=== PATIENT | female | born 1980 | race Caucasian/White ===

== ENCOUNTER 2025-07-06 17:18 | Emergency (ER) | payer BC, SELFPAY ==
--- OUTSIDE RECORDS SUMMARY | 2025-07-06 17:22 | XMS_ITS | Clinical Summary ---
[facility] Organization [facility] Address [address] [place] [address] Care Team Providers Care Shoe Lining Fitter Name Role Phone Ángel Villalta MD Primary Care Provider [phone] Allergies Active Allergy Reactions Criticality Noted Date Comments Sulfa (Sulfonamide Antibiotics) Medications azithromycin (ZITHROMAX) 250 mg tabletIndicatio ns:Bronchitis Take two tabs first day, then one tab daily x 4 days 6 tablet 4 Active Additional Information Patient not taking.Reported on 04/18/2025 albuterol HFA (PROVENTIL HFA,VENTOLIN HFA,PROAIR HFA) 90 mcg/actuation inhalerIndicati ons:Bronchitis Inhale 2 puffs every 4 (four) hours as needed for wheezing or shortness of breath 1 each 4 Active Additional Information Patient not taking.Reported on 04/18/2025 PNV,calcium 72-iron,carb-fo lic ( PLUS WITH IRON) 29 mg iron- 1 mg tablet /Folic Acid Oral Tablet QTY: 0 tablet Days: 0 Refills: 0 Written: 09/27/18 Patient Instructions: 8 Active losartan (COZAAR) 25 mg tablet Take 1 tablet (25 mg total) by mouth daily 90 tablet 1 5 10/15/20 25 Active Active Problems Problem Noted Date Diagnosed Date Annual physical exam 12/26/2023 Assessment & Plan (04/18/2025 11:10 AM CDT): Discussed lifestyle modifications, diet and exercise. Routine blood work ordered/reviewed today. Yearly vision and dental examinations. Assessment & Plan (12/26/2023 1:50 PM THERAPEUTIC RECREATION ASSISTANT): Discussed lifestyle modifications, diet and exercise. Routine blood work ordered/reviewed today. Yearly vision and dental examinations. Essential hypertension 12/26/2023 Assessment & Plan (04/18/2025 11:11 AM CDT): BP Readings from Last 3 Encounters: 04/18/25 146/82 10/05/24 146/82 12/26/23 118/72 Vitals BP 146/82 (BP Location: Left arm, Patient Position: Sitting) Pulse 94 Resp 16 Ht 175.3 cm (5' 9.02) Wt 98.9 kg (218 lb) LMP 03/18/2025 SpO2 99% BMI 32.18 kg/m Lab Results Component Value Date POTASSIUM 4.4 07/30/2016 Not at goal at [facility] time Recommend starting losartan 25 mg every day Assessment & Plan (12/26/2023 1:51 PM THERAPEUTIC RECREATION ASSISTANT): BP Readings from Last 3 Encounters: 12/26/23 118/72 Vitals BP 118/72 (BP Location: Right arm, Patient Position: Sitting) Pulse 78 Resp 16 Ht 174 cm (5' 8.5) Wt 95.3 kg (210 lb) SpO2 100% BMI 31.46 kg/m Lab Results Component Value Date POTASSIUM 4.4 07/30/2016 At goal Continue checking BP at [facility] D/c lisinopril Has been withotu it for about 1 week Heart palpitations 12/26/2023 Assessment & Plan (12/26/2023 1:51 PM THERAPEUTIC RECREATION ASSISTANT): Could be dehydration vs anxiety related If worsening rtc Class 1 obesity due to exces s calories without serious comorbidity with body mass index (BMI) of 31.0 to 31.9 in adult 12/26/2023 Assessment & Plan (04/18/2025 11:11 AM CDT): Wt Readings from Last 3 Encounters: 04/18/25 98.9 kg (218 lb) 10/05/24 98.9 kg (218 lb) 12/26/23 95.3 kg (210 lb) BMI Readings from Last 3 Encounters: 04/18/25 32.18 kg/m 10/05/24 32.19 kg/m 12/26/23 31.46 kg/m Not at goal of bmi <30 Continue diet and exercise BMI Follow-up includes: nutrition counseling and exercise counseling. Assessment & Plan (12/26/2023 1:50 PM THERAPEUTIC RECREATION ASSISTANT): Wt Readings from Last 3 Encounters: 12/26/23 95.3 kg (210 lb) BMI Readings from Last 3 Encounters: 12/26/23 31.46 kg/m Not at goal of bmi <30 Continue diet and exercise BMI Follow-up includes: nutrition counseling and exercise counseling. Encounters Date Type Department Care Team Description 04/18/2025 11:00 AM CDT Office Visit [facility] Primary Care at [address] [place] [phone] Ángel Villalta MD Annual physical exam (Primary Dx); Class 1 obesity due to excess calories without serious comorbidity with body mass index (BMI) of 31.0 to 31.9 in adult; Essential hypertension; Lipid screening; Screening for thyroid disorder; Need for hepatitis B screening test; Encounter for screening mammogram for malignant neoplasm of breast; Bleeding pigmented skin lesion 04/18/2025 Orders Only [facility] Primary Care at [address] [address] Ángel Villalta MD Bleeding pigmented skin lesion (Primary Dx) from Last 3 Months Immunizations Immunization Administration Dates Next Due Influenza, Quadrivalent, Spl it, Preservative Free, Intramuscular 12/26/2023,11/16/2021,10/14/2020,12/06 Influenza, Unspecified 12/26/2023(Deferred: Bisi ent Refused) Pfizer SARS-CoV-2 Monovalent Vaccination (12+ Yrs) PURPLE 04/01/2021 Family History Medical History Relation Name Comments Cervical cancer Mother Ovarian cancer Mother Relation Name Status Comments Mother Alive Social History Tobacco Use Types Packs/Day Years Used Date Smoking Tobacco: Every Day Cigarettes 0.5 22.7 Started: 2002 Tobacco Cessation:Ready to Q uit: Not Asked; Counseling Given: Yes AUDIT-C Answer Date Recorded Q1: How often do you have a drink containing alcohol? Never 04/18/2025 Q2: How many drinks containi ng alcohol do you have on a typical day when you are drinking? Patient does not drink Q3: How often do you have si x or more drinks on one occasion? Never 04/18/2025 PHQ-2 Answer Date Recorded PHQ-2 Total Score (If total score is 3 or more points, staff should administer the PHQ-9) 0 04/18/2025 Comments No Sex and Gender Information Value Date Recorded Sex Assigned at Not on file Legal Sex Female 8:52 AM THERAPEUTIC RECREATION ASSISTANT Gender Identity Not on file Sexual Orientation Not on file Obstetrics History Last Filed Vital Signs Vital Sign Reading Time Taken Comments Blood Pressure 146/82 04/18/2025 11:01 AM CDT Pulse 94 04/18/2025 11:01 AM CDT Temperature 36.5 C (97.7 F) 10/05/2024 4:05 PM THERAPEUTIC RECREATION ASSISTANT Respiratory Rate 16 04/18/2025 11:01 AM CDT Oxygen Saturation 99% 04/18/2025 11:01 AM CDT Inhaled Oxygen Concentration - - Weight 98.9 kg (218 lb) 04/18/2025 11:01 AM CDT Height 175.3 cm (5' 9.02) 04/18/2025 11:01 AM C DT Body Mass Index 32.18 04/18/2025 11:01 AM CDT Plan of Treatment Health Maintenance Due Date Last Done Comments Breast Cancer Screening-Mammogram 1982 Cervical Cancer Screening 1982 Hepatitis C Screening 1982 DTaP/Tdap/Td Vaccine (1 - Tdap) 1993 Varicella Vaccines (1 of 2 - 13+ 2-dose series) 1995 Hepatitis B Screening 01/11/2000 Pneumococcal vaccine <65 (1 of 2 - PCV) 2001 HPV Vaccines (1 - 3-dose SCD M series) 2009 Covid-19 Vaccine ( - 2024-2 6 season) 2025 04/01/2021, 03/11/2021 Influenza Vaccine (#1) 2025 , 11/16/2021, 10/14/2020, Additional history exists Depression Screening 04/18/2026 04/18/2025, 12/26/19 Regular Well Visit/Exam 18-64 04/18/2026 04/18/2025, 12/26/2023 Insurance ANTHEM ACCESS Care Teams Shoe Lining Fitter Relationship Specialty Start Date End Date Ángel Villalta MD [address] [place] [address] PCP - General Family Medicine 12/26/23
--- OUTSIDE RECORDS SUMMARY | 2025-07-06 17:22 | XMS_ITS | Encounter Summary ---
Author Organization [facility] Address [address] [place] [address] Phone Care Team Providers Care Rural Route Mail Carrier Name Role Phone Wolfgang Lauren MD Primary Care Provider [phone] Reason for Visit * Reason Comments Medication Refill Encounter Details Date Type Department Care Team (Late st Contact Info) Description 01/05/2022 Refill [facility] [address] [place] [address] Wolfgang Lauren MD [address] [place] [address] Medication Refill Social History Tobacco Use Types Packs/Day Years Used Date Smoking Tobacco: Every Day Cigarettes Smokeless Tobacco: Never Alcohol Use Standard Drinks/Week Comments Never 0 (1 standard drink = 0.6 oz pur e alcohol) AUDIT-C Answer Date Recorded Frequency of Alcohol Consumption Never 11/08/2019 Average Number of Drinks Not on file 020 Frequency of Binge Drinking Not on file 10/24 PHQ-2 Answer Date Recorded Total Score - Questions 1-9 4 10/25 Comments No Sex and Gender Information Value Date Recorded Sex Assigned at Not on file Legal Sex Female 2:25 PM CDT Gender Identity Not on file Sexual Orientation Not on file 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 Not on file Not on file documented as of this encounter Miscellaneous Notes * Telephone Encounter - Sheri Rice RN - 01/05/2022 1:54 PM CDT Name from pharmacy: VALSARTAN-HCTZ 160-25 MG TAB Will file in chart as: valsartan-hydroCHLOROthiazide (DIOVAN-HCT) 160-25 MG Tablet The original prescription was discontinued on 11/16/2021 by Wolfgang Lauren MD documented in this encounter Plan of Treatment Not on file documented as of this encounter Visit Diagnoses Not on filedocumented in this encounter Additional Health Concerns Assessment Noted Time PHQ-9 Depression Total Score: 4 11/16/19 22 12:00 PM PAGEANT DIRECTOR documented as of this encounter Care Teams Rural Route Mail Carrier Relationship Specialty Start Date End Date Wolfgang Lauren MD PCP - General Family Medicine 12/06/19 04/19/25 documented as of this encounter
[2025-07-06 17:24] VITALS: BP 162/103; PULSE 87; RESP 16; TEMP 36.9; O2SAT 99
[2025-07-06 17:34] VITALS: BP 155/102
--- NOTE | 2025-07-06 17:48 | ED.GENADULT ---
HPI - General Adult General Chief complaint: Animal Bite Stated complaint: cat clawed Time Seen by Provider: 07/06/25 17:38 Source: patient and RN notes reviewed Mode of arrival: ambulatory Limitations: no limitations History of Present Illness HPI narrative: Patient presents today with a cat nail puncture wound to the dorsum of her left hand that was sustained approximately 1.5 hours prior to arrival when she was breaking up a fight between a cat and a dog. The cat is a stray. Patient states she did not get bit. She is not up-to-date on her tetanus vaccine. No [id number] treatment prior to arrival. Related Data Home Medications ?Medication ?Instructions ?Recorded ?Confirmed ?Last Taken ?Type losartan 25 mg tablet mg 07/06/25 Unknown History Allergies Allergy/AdvReac Type Severity Reaction Status Date / Time Sulfa (Sulfonamide Allergy Severe Anaphylactic Verified 07/06/25 17:27 Antibiotics) Shock PMFSH Comments At time of signature, I have reviewed and agree with nursing past medical, surgical, social and family history unless otherwise noted. Please see nursing chart for further information. There is no relevant family history pertinent to the presenting complaint Exam Narrative: GENERAL: Well-appearing, well-nourished, and in no acute distress. HEAD: Normocephalic, atraumatic. EYES: EOMI. No redness or drainage. Conjunctivae normal. ENT: Mucous membranes pink and moist. NECK: Normal AROM. CHEST: No respiratory distress. EXTREMITIES: Left hand: Tiny puncture wound the dorsum of the hand in between the 3rd and 4th MCPs with surrounding hematoma measuring approximately 2x2cm. Distal sensation intact. Capillary refill normal. Full range of motion of the fingers without discomfort. No active bleeding. SKIN: Warm, dry, no rash. Capillary refill normal. Normal skin turgor. NEURO: No focal deficits. Alert and oriented x3. Gait steady. PSYCH: Normal affect. No signs of depression or anxiety. Course Course Level of Care: Express Care Visit Vital Signs Vital signs: Vital Signs Temperature 98.4 F 07/06/25 17:24 Pulse Rate 87 07/06/25 17:24 Respiratory Rate 16 07/06/25 17:24 Blood Pressure 162/103 H 07/06/25 17:24 Pulse Oximetry 99 07/06/25 17:24 Oxygen Delivery Room Air 07/06/25 17:24 Temperature 98.4 F 07/06/25 17:24 Pulse Rate 87 07/06/25 17:24 Respiratory Rate 16 07/06/25 17:24 Blood Pressure 155/102 H 07/06/25 17:34 Pulse Oximetry 99 07/06/25 17:24 Oxygen Delivery Room Air 07/06/25 17:24 Reviewed Medical Decision Making MDM Narrative Medical decision making narrative: 45-year-old female patient presents with a puncture wound to the dorsum of her left hand that was sustained prior to arrival by the nail of a stray cat as she was breaking up an animal fight. Patient has a puncture wound between the 3rd and 4th metacarpals with surrounding hematoma. Neurovascularly intact. Tetanus shot was updated. Patient was placed on prophylactic Augmentin. Anticipatory guidance given. Blood pressure elevated, but patient takes losartan. Recommend PCP follow-up regarding blood pressure as well. Differential Diagnosis Differential Diagnosis: puncture wound, hematoma, cat scratch Vital Signs Vital Signs: Vital Signs Temperature 98.4 F 07/06/25 17:24 Pulse Rate 87 07/06/25 17:24 Respiratory Rate 16 07/06/25 17:24 Blood Pressure 162/103 H 07/06/25 17:24 Pulse Oximetry 99 07/06/25 17:24 Oxygen Delivery Room Air 07/06/25 17:24 Temperature 98.4 F 07/06/25 17:24 Pulse Rate 87 07/06/25 17:24 Respiratory Rate 16 07/06/25 17:24 Blood Pressure 155/102 H 07/06/25 17:34 Pulse Oximetry 99 07/06/25 17:24 Oxygen Delivery Room Air 07/06/25 17:24 Critical Care Time Critical Care Time Critical Care Time: No Discharge Plan Discharge Clinical Impression: Cat scratch of hand Patient Disposition: Home Condition: Stable Instructions: Antibiotic Form Additional Instructions: Please take the Augmentin as prescribed until gone. Wash hand daily with soap and water. Monitor for any signs of infection such as redness, swelling, increased pain, drainage, red streaking up your hand. If you notice any signs of infection, please go to the ER immediately for further evaluation. Your tetanus shot has been updated today. Your blood pressure was elevated above 120/80 today at Urgent Care. This puts you above the threshold for follow up. Please schedule a followup visit with your personal physician as soon as possible, for further evaluation and treatment. Even blood pressure exceeding 120/80 may indicate pre-hypertension. Patient Language: [place] Prescriptions: New amoxicillin-pot clavulanate 875-125 mg tablet 1 tablet PO Q12H 5 Days Qty: 10 0RF No Action losartan 25 mg tablet Follow-up/Referrals: UNKNOWN,DOCTOR [Primary Care Provider] Time of Disposition: 17:52
[2025-07-06] MEDS: TETANUS,DIPHTHERIA,AC PERTUSSIS ADULT (0.5 ML) BOOSTRIX IM (17:49)
== END 2025-07-06 18:04 | disposition home or self-care (01) ==
PROVIDERS: Emergency Provider Nurse Practitioner
DX: S60.512A Abrasion of left hand, initial encounter (principal); W55.03XA Scratched by cat, initial encounter; Z23 Encounter for immunization; I10 Essential (primary) hypertension
CPT/HCPCS: 90471; 90715; 99203; G0463